=== PATIENT | male | born 2000 | race African-American/Black ===

== ENCOUNTER 2024-07-08 04:26 | Emergency (ER) | payer OTHER ==
[~2024-07-08] VITALS: Ht 190.5 cm; Wt 95.5 kg
[~2024-07-08 04:26] MED LIST: PREDNISONE20 MG PO
[2024-07-08 04:30] VITALS: TEMP 98.1
[2024-07-08 05:01] LABS: BASO % 0.4 % (0.0-2.0); EOS # 0.1 K/mm3 (0.0-0.7); EOS % 2.3 % (0.0-4.0); GRAN # 2.9 K/mm3 (1.4-6.5); GRAN % 50.9 % (42.2-75.2); HEMOGLOBIN 14.4 g/dl (13.5-18.0); LYMPH # 2.2 K/mm3 (1.2-3.4); LYMPH % 38.8 % (20.0-51.0); MEAN CELL VOLUME 92 fl (80.0-100.0); MEAN CORPUSCULAR HEMOGLOBIN 32 pg (27-31); MEAN CORPUSCULAR HGB CONC 34 g/dl (33.0-37.0); MEAN PLATELET VOLUME 9.1 fl (7.4-10.4); MONO # 0.4 K/mm3 (0.1-0.6); MONO % 7.4 % (1.7-9.3); PLATELET COUNT 226 K/mm3 (130-400); RED BLOOD COUNT 4.57 M/mm3 (4.20-5.60); REDCELL DISTRIBUTION WIDTH-CV 12.5 % (11.5-14.5)
[2024-07-08 05:07] LABS: PROTHROMBIN TIME 10.7 SECONDS (9.7-12.8)
[2024-07-08 05:18] LABS: D-DIMER < 200.00 ng/mLDDu (200-230)
[2024-07-08 05:20] LABS: ALANINE AMINOTRANSFERASE 14 U/L (0-55); ALBUMIN 4.1 g/dL (3.5-5.0); ALKALINE PHOSPHATASE 68 U/L (40-150); ANION GAP 14 mmol/L (7-16); AST,SGOT 18 U/L (5-34); BILIRUBIN,TOTAL 0.3 mg/dL (0.2-1.2); BLOOD UREA NITROGEN 15 mg/dL (9-21); CALCIUM 10.7 mg/dL (8.4-10.2); CHLORIDE 103 mEq/L (98-107); GLUCOSE 96 mg/dL (70-99); POTASSIUM 3.9 mEq/L (3.5-4.5); SODIUM 140 mEq/L (136-145)
[2024-07-08 05:33] LABS: TROPONIN-I < 0.010 ng/mL (0.00-0.033)
[2024-07-08 05:49] VITALS: BP 105/71; PULSE 63
== END 2024-07-08 05:59 | disposition home or self-care (01) ==
LOC: COL.ER 04:26
PROVIDERS: Emergency Medicine
DX: R07.89 Other chest pain (principal); F17.290 Nicotine dependence, other tobacco product, uncomplicated